=== PATIENT | female | born 1975 | race Two or more races ===

== ENCOUNTER 2016-04-24 09:27 | Outpatient (CLI) | payer BC ==
[2016-04-24 10:11] LABS: ALBUMIN 3.9 g/dL (3.4-5.0); BILIRUBIN,TOTAL 0.3 mg/dL (0.2-1.0); CALCIUM, SERUM 9.1 mg/dL (8.5-10.1); CREATININE 0.7 mg/dL (0.6-1.3); POTASSIUM 4.6 mmol/L (3.5-5.1); TOTAL PROTEIN, SERUM 7.9 g/dL (6.4-8.2)
== END 2016-04-24 23:59 | disposition home or self-care (01) ==
LOC: LAB 09:27
DX: R94.5 Abnormal results of liver function studies (principal)
CPT/HCPCS: 36415; 80053-TC

== ENCOUNTER 2016-06-21 10:53 | Outpatient (CLI) | payer BC ==
[2016-06-21 12:38] LABS: BASOPHILS % (AUTO) 0.3 % (0.0-2.0); EOSINOPHILS # (AUTO) 0.3 /CMM (0.0-0.7); EOSINOPHILS % (AUTO) 3.3 % (0.0-6.0); HEMATOCRIT 40 % (33-45); HEMOGLOBIN 13.5 g/dL (11.5-14.8); LYMPHOCYTES % (AUTO) 24.6 % (20.0-44.0); MEAN CORPUSCULAR HEMOGLOBIN 29 PG (26.0-33.0); MEAN CORPUSCULAR HGB CONC 34 g/dl (31.0-36.0); MEAN CORPUSCULAR VOLUME 86 fL (82-100); MONOCYTES # (AUTO) 0.4 /CMM (0.1-1.30); MONOCYTES % (AUTO) 5.6 % (2.0-12.0); NEUTROPHILS # (AUTO) 5.3 /CMM (1.8-8.9); NEUTROPHILS % (AUTO) 66.2 % (43.0-81.0); PLATELET COUNT (AUTO) 200 /CMM (150-450); RDW COEFFICIENT OF VARIATION 13.7 (11.5-15.0); RED BLOOD CELL COUNT(AUTO) 4.63 MIL/uL (4.0-5.2)
[2016-06-21 12:51] LABS: APPEARANCE,URINE CLEAR (CLEAR); BILIRUBIN,URINE NEGATIVE (NEGATIVE); BLOOD, URINE NEGATIVE Ery/uL (NEGATIVE); COLOR,URINE YELLOW (YELLOW); KETONES,URINE NEGATIVE (NEGATIVE); LEUKOCYTE ESTERASE ,URINE NEGATIVE (NEGATIVE); NITRITE, URINE POSITIVE (NEGATIVE); PROTEIN,URINE NEGATIVE (NEGATIVE); UGLUCOSE NEGATIVE (NEGATIVE); UROBILINOGEN,URINE 0.2 EU/dL (0.2)
[2016-06-21 13:16] LABS: ADD URINE CULTURE YES; BACTERIA,URINE Few /HPF (None Seen); RBC,URINE NONE SEEN /HPF (0-2); SQUAMOUS EPITHELIAL CELL,UR Few /HPF (None Seen); WBC,URINE 0-2 /HPF (0-3)
[2016-06-21] MEDS ORDERED: MIDAZOLAM HCL 2 MG/2ML VIAL ONE (14:45)
[2016-06-21] MEDS ORDERED: ROCURONIUM BROMIDE 50 MG/5 ML ONE ×2 (14:45→14:46)
[2016-06-21] MEDS ORDERED: FENTANYL PF 100MCG/2ML AMPUL ONE (14:45)
[2016-06-25 07:12] LABS: *RAPID PLASMA REAGIN QUAL Non Reactive (Non Reactive)
== END 2016-06-21 23:59 | disposition home or self-care (01) ==
LOC: LAB 10:53
DX: R53.81 Other malaise (principal); R53.83 Other fatigue
CPT/HCPCS: 36415; 81000-TC; 85025-TC; 86592; 87086-TC; J2250; J3010